=== PATIENT | female | born 1945 | race Caucasian/White ===

== ENCOUNTER → 2017-03-28 | Outpatient (CLI) | payer MEDICARE, OTHER ==
[~2017-03-28] MED LIST: ASPIRIN 81M81 MG/TA2 PO; CALCIUM 500500 M2 PO; CELEXA 20MG20 MG/TAB PO; NATURE'S BLEND M3 MG PO; TYLENOL 325MG325 MG PO; ZESTRIL 10MG10 MG PO; ZOCOR 20MG20 MG PO; ZOCOR 40MG40 MG PO
== END ==
LOC: COL.RAD 10:08
DX: A09 Infectious gastroenteritis and colitis, unspecified (principal); I77.4 Celiac artery compression syndrome; K44.9 Diaphragmatic hernia without obstruction or gangrene; I71.4 Abdominal aortic aneurysm, without rupture; K76.9 Liver disease, unspecified
CPT/HCPCS: Q9967